=== PATIENT | female | born 1975 | race Caucasian/White ===

== ENCOUNTER → 2020-04-23 10:58 | Outpatient (BNVA) | payer MEDICAID, SELFPAY | PROVIDERS: Family Provider Nurse Practitioner; PCP Nurse Practitioner; Visit Provider Internal Medicine | DX: Z79.899 Other long term (current) drug therapy (principal); Z11.1 Encounter for screening for respiratory tuberculosis; Z11.59 Encounter for screening for other viral diseases | CPT/HCPCS: 36415; 80053; 85025; 85651; 86140; 86480; 86704; 86803; 87340 ==

== ENCOUNTER → 2020-04-26 15:45 | Outpatient (BNVA) | payer MEDICAID, SELFPAY | PROVIDERS: Family Provider Nurse Practitioner; PCP Nurse Practitioner; Visit Provider Obstetrics & Gynecology | DX: N87.1 Moderate cervical dysplasia (principal) | CPT/HCPCS: 88175 ==

== ENCOUNTER → 2020-05-14 09:51 | Outpatient (BNVA) | payer SELFPAY | PROVIDERS: Family Provider Nurse Practitioner; PCP Nurse Practitioner; Visit Provider Internal Medicine | DX: L40.50 Arthropathic psoriasis, unspecified (principal); L40.9 Psoriasis, unspecified; Z79.899 Other long term (current) drug therapy; F17.210 Nicotine dependence, cigarettes, uncomplicated | CPT/HCPCS: 99213 ==

== ENCOUNTER → 2020-07-18 13:17 | Outpatient (BNVA) | payer SELFPAY | PROVIDERS: Family Provider Nurse Practitioner; PCP Internal Medicine; Visit Provider Internal Medicine | DX: L40.50 Arthropathic psoriasis, unspecified (principal); Z79.899 Other long term (current) drug therapy; F17.210 Nicotine dependence, cigarettes, uncomplicated | CPT/HCPCS: 99213 ==

== ENCOUNTER 2020-07-22 16:03 | Emergency (ER) | payer SELFPAY ==
[2020-07-22] VITALS (7 sets, daily range): BP systolic 106–153; BP diastolic 63–80; PULSE 85–144; RESP 15–20; TEMP 36.9; O2SAT 96–100; BMI 34.7
--- NOTE | 2020-07-22 16:25 | XRR_ITS ---
PROCEDURE INFORMATION: Exam: XR Chest Exam date and time: 07/22/2020 4:28 PM Age: 45 years old Clinical indication: Shortness of breath; Additional info: SOB TECHNIQUE: Imaging protocol: XR of the chest Views: 1 view. COMPARISON: No relevant prior studies available. FINDINGS: Lungs: Visualized portions of the lungs are clear. Pleural spaces: Unremarkable. No pleural effusion. No pneumothorax. Heart/Mediastinum: Heart is within normal limits of size. Bones/joints: There is scoliosis of the lower thoracic spine concave to the left with approximately 44 degrees of curvature is measured from T5 through T12. XR/XR chest 1V portable [id number] IMPRESSION: 1. Scoliosis. 2. No acute infiltrates.
--- NOTE | 2020-07-22 16:25 | ECG_ITS ---
[facility] Test Date: 2020-07-22 Pat Name: Celia Mcnamara Department: Room: Gender: Female Strategic Communications Specialist: : 1975 Requested By: Panfilo Hernandez Order Number: [id number] Reading MD: SCOT COSTA Measurements Intervals Una Rate: 137 P: 70 CA: 127 QRS: 75 QRSD: 82 T: 50 QT: 294 QTc: 444 Interpretive Statements SINUS TACHYCARDIA ABNORMAL RHYTHM ECG No previous ECG available for comparison Electronically Signed On 07-22-2020 17:41:00 TICKET CHOPPER ASSEMBLER by SCOT COSTA [id number]
--- NOTE | 2020-07-22 17:19 | USR_ITS ---
PROCEDURE INFORMATION: Exam: US Duplex Left Upper Extremity Veins, Limited Exam date and time: 07/22/2020 5:24 PM Age: 45 years old Clinical indication: Pain; Swelling (edema) of limb; Upper extremity, left; Arm, upper; Additional info: R/O upper ext dvt TECHNIQUE: Imaging protocol: Real-time Duplex ultrasound of the Left Upper Extremity with 2-D burris scale, color Doppler flow and spectral waveform analysis with image documentation. Limited exam focused on the left upper extremity veins. COMPARISON: No relevant prior studies available. FINDINGS: Left deep veins: Unremarkable. Axillary and brachial veins are patent throughout without thrombus. Normal Doppler waveforms. Normal compressibility and/or augmentation response. Visualized internal jugular and subclavian veins are patent. Left superficial veins: Unremarkable. Visualized cephalic and basilic veins are patent without thrombus. Soft tissues: Unremarkable. US/[place] [id number] IMPRESSION: No evidence of deep vein thrombosis.
[2020-07-22 17:28] LABS: Basophils # 0.1 10^3/uL (0.0-0.1); Basophils % 0.7 %; Eosinophils # 0.5 10^3/uL (0.0-0.8); Eosinophils % 3.8 %; Hematocrit 40.9 % (37.0-47.0); Hemoglobin 12.8 g/dL (11.5-15.3); Lymphocytes # 5.9 10^3/uL (0.8-4.8); Lymphocytes % 43.4 %; Mean Corpuscular HGB Conc 31.3 g/dL (30.0-36.0); Mean Corpuscular Hemoglobin 27.7 pg (28.0-34.0); Mean Corpuscular Volume 88.5 fL (81-99); Mean Platelet Volume 9.6 fL (7.4-10.4); Monocytes # 0.6 10^3/uL (0.2-0.9); Monocytes % 4.4 %; Neutrophils # 6.41 10^3/uL (1.8-7.7); Neutrophils % 47.4 %; Nucleated Red Blood Cells % 0 %; Platelet Count 326 10^3/cmm (130-400); Red Blood Count 4.62 10^6/uL (4.1-5.3); Red Cell Distribution Width 15.5 % (12.1-15.1); White Blood Count 13.5 10^3/uL (4.0-10.0)
[2020-07-22] MEDS: LORazepam 2 mg/mL INJ 1 mL 1 MG IVP (17:28)
[2020-07-22] MEDS: sodium chloride 0.9% 1,000 ML 999 ML IV (17:28)
[2020-07-22 17:40] LABS: D Dimer 0.29 ug/mIFEU (0-0.59)
[2020-07-22 18:01] LABS: Alanine Aminotransferase 14 U/L (0-33); Albumin Level 4.4 g/dL (3.5-5.2); Alkaline Phosphatase 112 IU/L (35-105); Anion Gap 13.9 (5-19); Aspartate Amino Transferase 14 U/L (0-32); Blood Urea Nitrogen 8 mg/dL (6-20); Calcium 9.2 mg/dL (8.5-10.5); Carbon Dioxide 26 mmol/L (22-29); Chloride 103 mmol/L (98-107); Glomerular Filtration Rate 90.5 mL/min (90-130); Glucose 94 mg/dL (65-115); Osmolality Calculated 286 mOsm/kg (285-295); Potassium 3.9 mmol/L (3.5-5.1); Sodium 139 mmol/L (136-145); Total Bilirubin 0.2 mg/dL (0.15-1.2); Total Protein 7.4 g/dL (6.6-8.7)
[2020-07-22 18:02] LABS: Troponin(5th) Baseline 6 ng/L (0-10)
--- NOTE | 2020-07-22 19:09 | W.ED.CHESTPA ---
HPI - Chest Pain General: Chief Complaint: Chest Pain Stated Complaint: LEFT ARM PAIN, chest pressure Time Seen by Provider: 07/22/20 16:36 History of Present Illness: HPI narrative: The patient is a 45-year-old female with past medical history anxiety who comes to the ER complaining of tachycardia, palpitations, and left proximal arm pain. She says she has a lump in her proximal arm that is tender and she does not know what it was. Also she says her baseline heart rate is around 100 because of her anxiety however today it has been in the 130s and 140s. Her heart rate was sinus tachycardia 144 on arrival. She was given 1 mg Ativan IV and calm down with her heart rate in the low 80s. Denies previous cardiac disease. She also has fibromyalgia and psoriatic arthritis. Timing of current episode: episodic Prior episodes: Yes Onset: during rest Quality: tightness Relieving factors: nothing Associated symptoms: Reports palpitations; Deny abdominal pain or dyspnea Review of Systems General: Reports: 10 or more systems reviewed and unremarkable except in HPI and below Const: Denies: fatigue Eyes: Denies: change in vision, blurry vision or eye redness ENMT: Denies: throat pain, swelling of lips/tongue, ear or mastoid pain or nasal congestion Card: Reports: palpitations; Denies: chest pain, irregular heart rhythm, edema, dyspnea on exertion or orthopnea Resp: Denies: dyspnea, productive cough or non-productive cough GI: Denies: abdominal pain, diarrhea or GI cramping : Denies: flank pain, difficulty voiding, urinary frequency or urinary urgency Musc: Denies: neck pain, back pain, extremity pain, joint pain, joint redness, limited range of motion or muscle weakness Skin/Breast: Denies: rash, pruritus, erythema, skin pain or skin tenderness Neuro: Denies: headache(s), numbness in extremities, weakness in extremities, sensory changes, difficulty walking, dizziness, confusion or Slurred speech present Psych: Denies: anxiety or depression Endo: Denies: polyuria All/Imm: Denies: urticaria, throat swelling or tongue swelling PFSH ED PFSH: Medical History Anxiety Cervical intraepithelial neoplasia II Fibromyalgia Psoriasis Psoriatic arthritis Scoliosis of thoracic spine Surgical History S/P cholecystectomy (~2000) Laparoscopic converted to open. Performed at [facility] in [place], [place]. S/P conization of cervix (11/30/18) Cold knife conization. Performed by Dr. Solorzano at [facility] in [place], [place]. Final path: AYSE 2. ECC negative. Family History Mother Diabetes Hypertension Heart disease Family history of thyroid problem Social History Smoking and tobacco status: current every day smoker cigarettes Packs smoked per day: 1 [ Other cigarette details: Started age 18 ] Alcohol intake: never Physical Exam Const: COMMON NORMALS: no acute distress, average body habitus, patient oriented x3, no limitations, healthy appearing, alert and well nourished GENERAL APPEARANCE: cooperative, comfortable, well kempt and well developed ORIENTATION/CONSCIOUSNESS: Yes awake, Yes oriented to person, Yes oriented to place and Yes oriented to time HENMT: COMMON NORMALS: normocephalic, external ears normal and Normal external nose present HEAD & SCALP: normal to inspection and normocephalic NOSE: Normal external nose present EXTERNAL EAR: Yes external ears normal MOUTH: Normal oral and palatal mucosa present THROAT: posterior oropharynx normal Eye: COMMON NORMALS: Equal, round and reactive pupils present and EOMs intact bilaterally GENERAL EYE: appearance normal, both eyes and all related structures PUPIL: Yes Equal, round and reactive pupils present Neck/C-Spine: COMMON NORMALS: full ROM, no lymphadenopathy, no meningeal signs and no JVD GENERAL: Yes normal visual inspection Lymph: LYMPHATIC: no lymphadenopathy noted Chest: COMMONS NORMALS: normal inspection of the chest and normal palpation of entire chest wall Resp: COMMON NORMALS: normal respiratory effort, No retractions, No use of accessory muscles, clear to auscultation bilaterally and percussion normal EFFORT & INSPECTION: Yes able to speak in complete sentences AUSCULTATION: clear to auscultation bilaterally PERCUSSION: percussion normal Cardio: COMMON NORMALS: no JVD, regular rhythm, S1 normal heart sound present, S2 normal heart sound present and Peripheral pulses 2+ throughout RATE: tachycardic RHYTHM: regular rhythm HEART SOUNDS: S1 normal heart sound present and S2 normal heart sound present PERIPHERAL PULSES: Peripheral pulses 2+ throughout GI: COMMON NORMALS: Normal to inspection, nondistended, normoactive bowel sounds present, Soft to palpation, non-tender and no masses INSPECTION: Yes normal to inspection PALPATION: Yes Soft to palpation : COMMON NORMALS: Yes no CVA tenderness BLADDER/KIDNEY EXAM: Yes no CVA tenderness Back/Pelvis: COMMON NORMALS: no CVA tenderness, thoracic and lumbar spine normal to inspection, no thoracic nor lumbar tenderness and thoraco-lumbar ROM normal Extremity: COMMON NORMALS: normal to inspection, full ROM, capillary refill normal, no joint enlargement and no pedal edema GENERAL: Yes normal exam except as noted Neuro: COMMON NORMALS: patient oriented x3, CN's II-XII intact bilaterally, moves all extremities, no focal motor deficits, no sensory deficits noted and gait normal SENSORIUM/ORIENTATION: Yes alert, Yes oriented to person, Yes oriented to place and Yes oriented to time MENINGEAL SIGNS: Yes no meningeal signs Psych: COMMON NORMALS: mental status grossly normal, Normal thought process present, cooperative, normal affect and speech normal APPEARANCE: Yes well kempt ATTITUDE: Yes calm SPEECH: Yes normal speech THOUGHT PROCESS: Normal thought process present Skin: COMMON NORMALS: no rashes or lesions noted GENERAL SKIN EXAM: no rashes or lesions noted Course Vital Signs: Vital signs: Vital Signs Temperature 98.5 F 07/22/20 16:06 Pulse Rate 85 07/22/20 18:46 Respiratory Rate 15 07/22/20 18:46 Blood Pressure 122/63 07/22/20 18:46 Pulse Oximetry 99 07/22/20 18:46 MDM - Chest Pain MDM Narrative: Medical decision making narrative: The patient came in tachycardic likely from anxiety. D-dimer negative. Troponin normal. She was sinus tachycardia and given 1 mg of Ativan IV and her resting heart rate became the low to mid 80s. Stable for discharge. Ultrasound was negative for deep vein thrombosis. Lab Data: Labs: Lab Results 07/22/20 07/22/20 07/22/20 Range/Units 17:20 17:20 17:20 WBC 13.5 H (4.0-10.0) 10^3/ uL RBC 4.62 (4.1-5.3) 10^6/u L Hgb 12.8 (11.5-15.3) g/dL Hct 40.9 (37.0-47.0) % MCV 88.5 (81-99) fL MCH 27.7 L (28.0-34.0) pg MCHC 31.3 (30.0-36.0) g/dL RDW 15.5 H (12.1-15.1) % Plt Count 326 (130-400) 10^3/c mm MPV 9.6 (7.4-10.4) fL Neut % (Auto) 47.4 % Lymph % (Auto) 43.4 % Morrison % (Auto) 4.4 % Eos % (Auto) 3.8 % Baso % (Auto) 0.7 % Neut # (Auto) 6.41 (1.8-7.7) 10^3/u L Lymph # (Auto) 5.9 H (0.8-4.8) 10^3/u L Morrison # (Auto) 0.6 (0.2-0.9) 10^3/u L Eos # (Auto) 0.5 (0.0-0.8) 10^3/u L Baso # (Auto) 0.1 (0.0-0.1) 10^3/u L Nucleated RBC % (a uto) 0 % Nucleated RBCs # 0.0 /100WBC D-Dimer 0.29 (0-0.59) ug/mIFE U Sodium 139 (136-145) mmol/L Potassium 3.9 (3.5-5.1) mmol/L Chloride 103 (98-107) mmol/L Carbon Dioxide 26 (22-29) mmol/L Anion Gap 13.9 (5-19) BUN 8 (6-20) mg/dL Creatinine 0.7 (0.5-0.9) mg/dL GFR Calculation 90.5 (90-130) mL/min Glucose 94 (65-115) mg/dL Calculated Osmolal ity 286 (285-295) mOsm/k g Calcium 9.2 (8.5-10.5) mg/dL Total Bilirubin 0.2 (0.15-1.2) mg/dL AST 14 (0-32) U/L ALT 14 (0-33) U/L Alkaline Phosphata se 112 H (35-105) IU/L Troponin T Baselin e (0-10) ng/L Total Protein 7.4 (6.6-8.7) g/dL Albumin 4.4 (3.5-5.2) g/dL Globulin 3.0 (1.3-4.6) g/dL 07/22/20 Range/Units 17:20 WBC (4.0-10.0) 10^3/ uL RBC (4.1-5.3) 10^6/u L Hgb (11.5-15.3) g/dL Hct (37.0-47.0) % MCV (81-99) fL MCH (28.0-34.0) pg MCHC (30.0-36.0) g/dL RDW (12.1-15.1) % Plt Count (130-400) 10^3/c mm MPV (7.4-10.4) fL Neut % (Auto) % Lymph % (Auto) % Morrison % (Auto) % Eos % (Auto) % Baso % (Auto) % Neut # (Auto) (1.8-7.7) 10^3/u L Lymph # (Auto) (0.8-4.8) 10^3/u L Morrison # (Auto) (0.2-0.9) 10^3/u L Eos # (Auto) (0.0-0.8) 10^3/u L Baso # (Auto) (0.0-0.1) 10^3/u L Nucleated RBC % (a uto) % Nucleated RBCs # /100WBC D-Dimer (0-0.59) ug/mIFE U Sodium (136-145) mmol/L Potassium (3.5-5.1) mmol/L Chloride (98-107) mmol/L Carbon Dioxide (22-29) mmol/L Anion Gap (5-19) BUN (6-20) mg/dL Creatinine (0.5-0.9) mg/dL GFR Calculation (90-130) mL/min Glucose (65-115) mg/dL Calculated Osmolal ity (285-295) mOsm/k g Calcium (8.5-10.5) mg/dL Total Bilirubin (0.15-1.2) mg/dL AST (0-32) U/L ALT (0-33) U/L Alkaline Phosphata se (35-105) IU/L Troponin T Baselin e 6 (0-10) ng/L Total Protein (6.6-8.7) g/dL Albumin (3.5-5.2) g/dL Globulin (1.3-4.6) g/dL Discharge Plan Discharge Patient Disposition: Home Clinical Impression: Anxiety Condition: Stable Prescriptions: No Action diphenhydramine HCl [Benadryl] 25 mg capsule 25 mg PO PRN RF: 0 ciclopirox 8 % solution 1 applic topical DAILY Qty: 6.6 RF: 3 Tylenol Extra Strength 500 mg Tablet 500 mg PO PRN RF: 0 diclofenac sodium 75 mg tablet,delayed release (DR/EC) 75 mg PO BID@08,20 RF: 0 Otezla 30 mg tablet 30 mg PO BID@08,20 RF: 0 Discharge Orders: Discharge ED (Routine); Ordered 07/22/20 Ordered By: Alex Gibbs Referrals: Jackie Shore DO [Primary Care Provider] - Discharge Diet: Advance as tolerated Discharge Activity: Resume usual activity Patient Instructions: Anxiety (ED), Opioid Safety Activity Restrictions/Additional Instructions: You have an elevated heart rate likely related to your anxiety. When you are given anxiety medicine your heart rate came down to the 80s. Please follow-up with your primary care physician to discuss this further in a couple days. Return to the ER with worsening symptoms Coding Level of Care Code ED Fagoting Machine Operator for Jasmina Murillo Exam Comprehensive
== END 2020-07-22 19:44 | disposition home or self-care (01) ==
PROVIDERS: Emergency Medicine; Emergency Provider Family Medicine; PCP Family Medicine
DX: F41.9 Anxiety disorder, unspecified (principal); F17.210 Nicotine dependence, cigarettes, uncomplicated
CPT/HCPCS: 71045; 80053; 84484; 85025; 85378; 93005; 93971; 96361; 96374; 99284; J2060; J7030

== ENCOUNTER → 2020-07-23 10:14 | Outpatient (BNVA) | payer SELFPAY | PROVIDERS: PCP Family Medicine; Referring Provider Dermatology; Visit Provider Podiatrist Foot & Ankle Surgery | DX: M19.071 Primary osteoarthritis, right ankle and foot (principal); M79.671 Pain in right foot; M79.672 Pain in left foot; L40.50 Arthropathic psoriasis, unspecified; L60.3 Nail dystrophy; Q82.8 Other specified congenital malformations of skin | CPT/HCPCS: 73630; 87210 ==

== ENCOUNTER 2020-08-24 13:18 | Outpatient (CLI) | payer SELFPAY ==
--- NOTE | 2020-08-24 13:30 | XR_ITS ---
WS: [id number] Thoracic spine, 3 views, 08/24/2020 Clinical Data: chronic back pain Comparison: Thoracic spine, 01/12/2020. Findings: No compression fractures are seen. The disc heights are normal. There is a dextroscoliosis of the lower thoracic spine unchanged. The paravertebral regions are unrem arkable. There are clips in the right upper quadrant from a cholecystectomy. XR/XR thoracic spine 2V [id number] Impression: Negative for acute change of the thoracic spine.
--- NOTE | 2020-08-24 14:00 | XR_ITS ---
WS: [id number] Lumbar spine, 3 views, 08/24/2020 Clinical Data: chronic back pain Comparison: None. Findings: No compression fractures or subluxation is seen. No disc space narrowing is seen. The transverse proc esses and SI joints are normal. There is a levoscoliosis of the lumbar spine. There are clips in the right upper quadrant from a chol ecystectomy. XR/XR lumbar spine 2-3V* [id number] Impression: Negative for acute change of lumbar spine.
--- NOTE | 2020-08-24 14:30 | XR_ITS ---
WS: [id number] Cervical spine, 3 views, 08/24/2020 Clinical Data: chronic back pain Comparison: None. Findings: No compression fractures are seen. The disc heights are normal. There is no prevertebral so ft tissue swelling. The odontoid is unremarkable. The soft tissues of the neck and the lung apices ar e normal. XR/XR cervical spine 3V* [id number] Impression: Negative cervical spine.
== END 2020-08-24 13:19 | disposition home or self-care (01) ==
LOC: RADWPI 13:21
PROVIDERS: PCP Family Medicine; Visit Provider Family Medicine
DX: M54.2 Cervicalgia (principal); M54.6 Pain in thoracic spine; M54.5 Low back pain
CPT/HCPCS: 72040; 72070; 72100

== ENCOUNTER 2020-09-13 13:49 | Outpatient (RCR) | payer SELFPAY | END 2020-09-14 23:59 | disposition home or self-care (01) | LOC: SPT 13:49 | PROVIDERS: PCP Family Medicine; Referring Provider Family Medicine; Visit Provider Family Medicine | DX: M54.9 Dorsalgia, unspecified (principal); G89.29 Other chronic pain | CPT/HCPCS: 97161 ==

== ENCOUNTER 2020-09-15 06:00 | Outpatient (RCR) | payer SELFPAY | END 2020-10-15 23:59 | disposition home or self-care (01) | LOC: SPT 06:00 | PROVIDERS: PCP Family Medicine; Referring Provider Family Medicine; Visit Provider Family Medicine | DX: M54.9 Dorsalgia, unspecified (principal); G89.29 Other chronic pain | CPT/HCPCS: 97110 ==

== ENCOUNTER 2020-11-02 11:14 | Outpatient (CLI) | payer SELFPAY ==
[2020-11-02 11:45] LABS: Basophils # 0.1 10^3/uL (0.0-0.1); Basophils % 0.7 %; Eosinophils # 0.7 10^3/uL (0.0-0.8); Eosinophils % 5.4 %; Hematocrit 41.3 % (37.0-47.0); Hemoglobin 12.9 g/dL (11.5-15.3); Lymphocytes # 6.4 10^3/uL (0.8-4.8); Lymphocytes % 47.3 %; Mean Corpuscular HGB Conc 31.2 g/dL (30.0-36.0); Mean Corpuscular Hemoglobin 27.7 pg (28.0-34.0); Mean Corpuscular Volume 88.8 fL (81-99); Mean Platelet Volume 9.8 fL (7.4-10.4); Monocytes # 0.7 10^3/uL (0.2-0.9); Monocytes % 5.4 %; Neutrophils # 5.58 10^3/uL (1.8-7.7); Nucleated Red Blood Cells % 0 %; Platelet Count 310 10^3/cmm (130-400); Positive M 1; Red Blood Count 4.65 10^6/uL (4.1-5.3); Red Cell Distribution Width 16.3 % (12.1-15.1); White Blood Count 13.6 10^3/uL (4.0-10.0)
[2020-11-02 12:16] LABS: Alanine Aminotransferase 10 U/L (0-33); Alkaline Phosphatase 127 IU/L (35-105); Anion Gap 15.3 (5-19); Aspartate Amino Transferase 12 U/L (0-32); Blood Urea Nitrogen 7 mg/dL (6-20); C Reactive Protein 2.3 mg/L (0.0-4.9); Calcium 8.6 mg/dL (8.5-10.5); Carbon Dioxide 25 mmol/L (22-29); Chloride 103 mmol/L (98-107); Globulin 2.7 g/dL (1.3-4.6); Glomerular Filtration Rate 90.5 mL/min (90-130); Glucose 89 mg/dL (65-115); Osmolality Calculated 285 mOsm/kg (285-295); Potassium 4.3 mmol/L (3.5-5.1); Sodium 139 mmol/L (136-145); Total Bilirubin 0.2 mg/dL (0.15-1.2); Total Protein 6.7 g/dL (6.6-8.7)
[2020-11-02 12:34] LABS: Erythrocyte Sedimentation Rate 34 mm/hr (0-15)
[2020-11-02 12:58] LABS: Slide Review Slide Review Perform
== END 2020-11-02 11:15 | disposition home or self-care (01) ==
LOC: LAB 11:20
PROVIDERS: PCP Family Medicine; Visit Provider Internal Medicine
DX: L40.50 Arthropathic psoriasis, unspecified (principal); M79.7 Fibromyalgia; Z79.899 Other long term (current) drug therapy
CPT/HCPCS: 36415; 80053; 85025; 85651; 86140

== ENCOUNTER → 2020-11-07 13:36 | Outpatient (BNVA) | payer SELFPAY | PROVIDERS: PCP Family Medicine; Visit Provider Internal Medicine | DX: L40.50 Arthropathic psoriasis, unspecified (principal); Z79.899 Other long term (current) drug therapy; M79.7 Fibromyalgia; M54.9 Dorsalgia, unspecified; G89.29 Other chronic pain; F17.210 Nicotine dependence, cigarettes, uncomplicated | CPT/HCPCS: 99213; 99214 ==

== ENCOUNTER → 2021-02-14 10:22 | Outpatient (BNVA) | payer MEDICAID, SELFPAY | PROVIDERS: PCP Family Medicine; Visit Provider Internal Medicine | DX: L40.50 Arthropathic psoriasis, unspecified (principal); L40.9 Psoriasis, unspecified; M79.7 Fibromyalgia; Z79.899 Other long term (current) drug therapy | CPT/HCPCS: 36415; 80053; 85025; 85651; 86140 ==

== ENCOUNTER → 2021-02-19 10:45 | Outpatient (BNVA) | payer MEDICAID, SELFPAY | PROVIDERS: PCP Family Medicine; Visit Provider Internal Medicine | DX: L40.50 Arthropathic psoriasis, unspecified (principal); L40.9 Psoriasis, unspecified; Z79.899 Other long term (current) drug therapy; M79.7 Fibromyalgia; M54.9 Dorsalgia, unspecified; G89.29 Other chronic pain; F17.210 Nicotine dependence, cigarettes, uncomplicated | CPT/HCPCS: 99213; 99214 ==

== ENCOUNTER 2021-06-05 08:22 | Outpatient (CLI) | payer MEDICAID, SELFPAY ==
[2021-06-05 09:09] LABS: Alanine Aminotransferase 14 U/L (0-33); Albumin Level 4.2 g/dL (3.5-5.2); Alkaline Phosphatase 115 IU/L (35-105); Anion Gap 15.1 (5-19); Aspartate Amino Transferase 13 U/L (0-32); Blood Urea Nitrogen 6 mg/dL (6-20); C Reactive Protein 2.7 mg/L (0.0-4.9); Calcium 8.2 mg/dL (8.5-10.5); Carbon Dioxide 25 mmol/L (22-29); Chloride 104 mmol/L (98-107); Globulin 2.1 g/dL (1.3-4.6); Glomerular Filtration Rate 107.6 mL/min (90-130); Glucose 98 mg/dL (65-115); Osmolality Calculated 288 mOsm/kg (285-295); Potassium 4.1 mmol/L (3.5-5.1); Sodium 140 mmol/L (136-145); Total Bilirubin 0.2 mg/dL (0.15-1.2); Total Protein 6.3 g/dL (6.6-8.7)
[2021-06-05 09:26] LABS: Erythrocyte Sedimentation Rate 28 mm/hr (0-15)
[2021-06-05 09:30] LABS: Basophils # 0.1 10^3/uL (0.0-0.1); Basophils % 0.7 %; Eosinophils # 0.4 10^3/uL (0.0-0.8); Eosinophils % 3.4 %; Hematocrit 42.9 % (37.0-47.0); Lymphocytes # 4.5 10^3/uL (0.8-4.8); Lymphocytes % 40.1 %; Mean Corpuscular HGB Conc 32.6 g/dL (30.0-36.0); Mean Corpuscular Volume 94.9 fl (81-99); Mean Platelet Volume 10.3 fL (7.4-10.4); Monocytes # 0.6 10^3/uL (0.2-0.9); Monocytes % 5.3 %; Neutrophils # 5.57 10^3/uL (1.8-7.7); Nucleated Red Blood Cells % 0 %; Platelet Count 263 10^3/cmm (130-400); Red Blood Count 4.52 10^6/uL (4.1-5.3); Red Cell Distribution Width 15.6 % (12.1-15.1); White Blood Count 11.2 10^3/uL (4.0-10.0)
[2021-06-05 09:55] LABS: Slide Review Slide Review Perform
== END 2021-06-05 08:23 | disposition home or self-care (01) ==
LOC: LAB 08:25
PROVIDERS: PCP Family Medicine; Visit Provider Internal Medicine
DX: M19.90 Unspecified osteoarthritis, unspecified site (principal); L40.50 Arthropathic psoriasis, unspecified; Z79.899 Other long term (current) drug therapy; L40.9 Psoriasis, unspecified
CPT/HCPCS: 36415; 80053; 85025; 85651; 86140

== ENCOUNTER → 2021-06-10 13:52 | Outpatient (BNVA) | payer MEDICAID, SELFPAY | PROVIDERS: PCP Family Medicine; Visit Provider Internal Medicine | DX: L40.50 Arthropathic psoriasis, unspecified (principal); Z79.899 Other long term (current) drug therapy; Z87.891 Personal history of nicotine dependence | CPT/HCPCS: 99214 ==

== ENCOUNTER → 2021-06-28 15:41 | Outpatient (BNVA) | payer MEDICAID, SELFPAY | PROVIDERS: PCP Family Medicine; Visit Provider Nurse Practitioner Women's Health | DX: N87.1 Moderate cervical dysplasia (principal) | CPT/HCPCS: 87624 ==

== ENCOUNTER → 2021-09-02 14:43 | Outpatient (BNVA) | payer MEDICAID, SELFPAY | PROVIDERS: PCP Family Medicine; Visit Provider Podiatrist Foot & Ankle Surgery | DX: L85.1 Acquired keratosis [keratoderma] palmaris et plantaris (principal); F17.210 Nicotine dependence, cigarettes, uncomplicated | CPT/HCPCS: 17110 ==

== ENCOUNTER 2021-09-04 09:43 | Outpatient (CLI) | payer MEDICAID, SELFPAY ==
[2021-09-04 11:21] LABS: Hematocrit 44.8 % (37.0-47.0); Hemoglobin 14.6 g/dL (11.5-15.3); Mean Corpuscular HGB Conc 32.6 g/dL (30.0-36.0); Mean Corpuscular Volume 95.1 fl (81-99); Mean Platelet Volume 10.3 fL (7.4-10.4); Platelet Count 271 10^3/cmm (130-400); Red Blood Count 4.71 10^6/uL (4.1-5.3); Red Cell Distribution Width 14.4 % (12.1-15.1); White Blood Count 11.5 10^3/uL (4.0-10.0)
[2021-09-04 11:28] LABS: Erythrocyte Sedimentation Rate 32 mm/hr (0-15)
[2021-09-04 12:11] LABS: Slide Review Slide Review Perform
[2021-09-04 12:12] LABS: Absolute Eosinophils 0.6 10^3/cmm (0.0-0.7); Absolute Segmented Neutrophil 4.3 10/cmm (1.6-7.1); Eosinophils 6 %; Lymphocytes 43 %; Monocytes Absolute 0.6 10^3/cmm (0.1-0.6); Segmented Neutrophils 37 %; Total Cells Counted 100 (0-100)
[2021-09-04 12:22] LABS: Absolute Neutrophil 4.3 10^3/cmm (1.4-6.5); Platelet Estimate Normal (Normal)
[2021-09-04 16:56] LABS: Alanine Aminotransferase 21 U/L (0-33); Albumin Level 4.2 g/dL (3.5-5.2); Alkaline Phosphatase 111 IU/L (35-105); Aspartate Amino Transferase 27 U/L (0-32); Blood Urea Nitrogen 8 mg/dL (6-20); C Reactive Protein 5.7 mg/L (0.0-4.9); Calcium 8.6 mg/dL (8.5-10.5); Carbon Dioxide 23 mmol/L (22-29); Chloride 101 mmol/L (98-107); Globulin 3.4 g/dL (1.3-4.6); Glomerular Filtration Rate 107.6 mL/min (90-130); Glucose 81 mg/dL (65-115); Osmolality Calculated 285 mOsm/kg (285-295); Sodium 139 mmol/L (136-145); Total Bilirubin 0.2 mg/dL (0.15-1.2); Total Protein 7.6 g/dL (6.6-8.7)
[2021-09-04 16:57] LABS: Anion Gap 19.1 (5-19); Potassium 4.1 mmol/L (3.5-5.1)
== END 2021-09-04 09:44 | disposition home or self-care (01) ==
LOC: LAB 09:47
PROVIDERS: PCP Family Medicine; Visit Provider Internal Medicine
DX: L40.50 Arthropathic psoriasis, unspecified (principal); L40.9 Psoriasis, unspecified; Z79.899 Other long term (current) drug therapy
CPT/HCPCS: 80053; 85007; 85025; 85651; 86140

== ENCOUNTER 2021-09-08 12:31 | Emergency (ER) | payer MEDICAID, SELFPAY ==
[2021-09-08 12:44] VITALS: BP 128/83; PULSE 82; RESP 18; TEMP 37; O2SAT 97; BMI 36.6
--- NOTE | 2021-09-08 12:51 | ED_ITS ---
HPI - Back Pain/Injury General: Chief Complaint: Back Pain/Injury Stated Complaint: Lower back/leg pain Time Seen by Provider: 09/08/21 12:37 Source: patient Mode of arrival: ambulatory Limitations: no limitations History of Present Illness: Patient is a 46-year-old female presents to ED today with a complaint of lower back pain. Patient tells me she has chronic lower back pain with left-sided sciatica. She states a few days ago she fell directly onto her back/buttocks and has had worsening pain since. She states she recently saw her PCP following the fall who placed her on prednisone and tramadol. She is taking 50 mg tramadol twice daily and states the medication works approximately for an hour but then pain returns. She is scheduled to see pain management in October. Patient is not complaining of saddle anesthesia or bowel/bladder dysfunction. MD elicited complaint: back pain Pertinent past history: prior back pain Onset (ago): day(s) Timing: constant Severity: moderate Pain scale (0-10): 6 Similar Symptoms Previously: Yes Location: lumbar spine Radiation: buttocks and left leg below the knee Associated symptoms: Reports no associated symptoms; Deny abdominal pain, chills, dysuria, fatigue, fever(s) or hematuria Treatments prior to arrival: prescription analgesics Work related injury: No Review of Systems Const: Denies: fever(s), chills, body aches, fatigue or malaise Card: Denies: chest pain Resp: Denies: dyspnea GI: Denies: abdominal pain : Denies: flank pain, dysuria or hematuria Musc: Reports: back pain; Denies: neck pain, extremity pain, extremity swelling, joint pain, joint swelling or joint redness Neuro: Denies: headache(s), numbness in extremities or weakness in extremities [facility] ED PFSH: Medical History Cervical intraepithelial neoplasia II Fibromyalgia Murmur, heart asymptomatic-- dx at 28 y/o No pertinent past medical history neghx: htn,dm,thyroid,dvt/pe PCP: Dr. Shore Psoriasis Psoriatic arthritis Dr. Vickey Blood of thoracic spine Surgical History S/P cholecystectomy (~2000) Laparoscopic converted to open. Performed at [facility] in [place], [place]. S/P conization of cervix (11/30/18) Cold knife conization. Performed by Dr. Solorzano at [facility] in [place], [place]. Final path: AYSE 2. ECC negative. Family History Mother Diabetes Hypertension Heart disease Thyroid disease Denies family history of Colon cancer Ovarian cancer Hypercholesteremia Breast cancer Uterine cancer Stroke Social History Smoking and tobacco status: current every day smoker Physical Exam Const: COMMON NORMALS: no acute distress, patient oriented x3, no limitations and alert GENERAL APPEARANCE: cooperative NUTRITIONAL APPEARANCE: overweight ORIENTATION/CONSCIOUSNESS: Yes awake, Yes oriented to person, Yes oriented to place and Yes oriented to time HENMT: COMMON NORMALS: normocephalic and atraumatic HEAD & SCALP: normocephalic and atraumatic : COMMON NORMALS: Yes no CVA tenderness BLADDER/KIDNEY EXAM: Yes no CVA tenderness Back/Pelvis: COMMON NORMALS: no CVA tenderness THORACIC SPINE/UPPER BACK: Yes normal to inspection, Yes thoracic ROM normal, No thoracic spinal tenderness, No paraspinal muscle tenderness and No paraspinal muscle spasm LUMBAR SPINE/LOWER BACK: Yes normal to inspection, Yes lumbar spinal tenderness, No paraspinal muscle tenderness, No paraspinal muscle spasm and Yes straight leg raise negative bilaterally PELVIS: Yes buttocks normal SACROILIAC JOINTS: Yes SI joint(s) abnormal SI joint details: tender to palpation (left) SACRUM: no tenderness COCCYX: no tenderness Extremity: COMMON NORMALS: normal to inspection GENERAL: Yes normal exam except as noted Neuro: COMMON NORMALS: patient oriented x3, moves all extremities, no focal motor deficits and no sensory deficits noted SENSORIUM/ORIENTATION: Yes alert, Yes oriented to person, Yes oriented to place and Yes oriented to time MOTOR EXAM: 5/5 motor strength present throughout Skin: COMMON NORMALS: no rashes or lesions noted GENERAL SKIN EXAM: no rashes or lesions noted Course Vital Signs: Vital signs: Vital Signs Temperature 98.6 F 09/08/21 12:44 Pulse Rate 82 09/08/21 12:44 Respiratory Rate 18 09/08/21 12:44 Blood Pressure 128/83 09/08/21 12:44 Pulse Oximetry 97 09/08/21 12:44 MDM - Back Pain/Injury Medical Decision Making XRs negative. No acute neurologic deficits here. Patient only taking 50mg Tramadol BID-told her this could be increased. She states Dr. Shore wrote her for 60 tabs but her insurance would only cover one week worth so she only got 14 tabs. Told her I would rewrite her a new RX for increased dosing but pharmacy/insurance may not fill-patient aware and will pay mckeon if necessary. She is already on steroids. Will add muscle relaxers. Can follow up with PCP between now and her pain management appointment in October. Return to ED precautions given. Labs Radiology Impressions Lumbar Spine X-Ray 09/08/21 13:00 IMPRESSION: No acute findings. Discharge Plan Discharge Patient Disposition: Home Clinical Impression: Acute exacerbation of chronic low back pain Condition: Stable Prescriptions: New tramadol 50 mg tablet 50 mg PO Q4H PRN (Reason: pain) Qty: 20 0RF cyclobenzaprine 10 mg tablet 10 mg PO TID Qty: 14 0RF No Action diphenhydramine HCl [Benadryl] 25 mg capsule 25 mg PO PRN 0RF ibuprofen 800 mg tablet 800 mg PO Q8H Qty: 90 2RF buspirone 10 mg tablet 10 mg PO BID PRN (Reason: anxiety) Qty: 60 5RF cetirizine [Zyrtec] 10 mg tablet 10 mg PO DAILY PRN0RF prednisone 10 mg tablet 30 mg PO DAILY Qty: 15 0RF tramadol 50 mg tablet 50 mg PO BID PRN (Reason: pain) Qty: 60 0RF duloxetine 60 mg capsule,delayed release(DR/EC) 60 mg PO DAILY Qty: 30 5RF Rx Instructions: 340 B duloxetine [Cymbalta] 30 mg capsule,delayed release(DR/EC) 30 mg PO DAILY Qty: 30 5RF Rx Instructions: Take with 60 mg pill 340 B Humira 40 mg/0.8 mL syringe kit 40 mg SUBCUT Q14D Qty: 2 4RF Tylenol Extra Strength 500 mg Tablet 500 mg PO PRN 0RF Discharge Orders: Discharge ED (Routine); Ordered 09/08/21 Ordered By: Kassie Barone Referrals: Jackie Shore DO [Primary Care Provider] - Coding Level of Care Code ED Coin Rolling Machine Operator for Chg Fwd Exam Detailed
--- NOTE | 2021-09-08 13:00 | XRR_ITS ---
PROCEDURE INFORMATION: Exam: XR Lumbosacral Spine Exam date and time: 09/08/2021 1:13 PM Age: 46 years old Clinical indication: Injury or trauma; Blunt trauma (contusions or hematomas); Patient HX: C/O worsening lbp after fall 5 days ago; Additional info: Fall/pain TECHNIQUE: Imaging protocol: XR of the lumbosacral spine. Views: 2 or 3 views. COMPARISON: CR XR lumbar spine 2-3V* [id number] 08/24/2020 1:28 PM FINDINGS: Bones/joints: Normal. No acute fracture. Normal alignment. Soft tissues: Unremarkable. XR/XR lumbar spine 2-3V* [id number] IMPRESSION: No acute findings.
[2021-09-08] MEDS: ketorolac 60 mg/2 mL INJ IM (13:26)
[2021-09-08] MEDS: orphenadrine 30 mg/mL Inj 2 mL 60 MG IM (13:26)
[2021-09-08] MEDS: HYDROcodone-acetaminophen 5-325 mg Tablet 1 TAB PO (13:26)
[2021-09-08 14:15] VITALS: BP 112/74; PULSE 71; RESP 18; O2SAT 93
== END 2021-09-08 14:17 | disposition home or self-care (01) ==
PROVIDERS: Emergency Provider Physician Assistant; PCP Family Medicine
DX: M54.42 Lumbago with sciatica, left side (principal); G89.29 Other chronic pain; W18.30XA Fall on same level, unspecified, initial encounter
CPT/HCPCS: 72100; 96372; 99283; J1885; J2360

== ENCOUNTER → 2021-09-10 08:33 | Outpatient (BNVA) | payer MEDICAID, SELFPAY | PROVIDERS: PCP Family Medicine; Visit Provider Internal Medicine | DX: L40.50 Arthropathic psoriasis, unspecified (principal); Z79.899 Other long term (current) drug therapy; F17.200 Nicotine dependence, unspecified, uncomplicated | CPT/HCPCS: 99214 ==

== ENCOUNTER 2021-10-23 16:02 | Outpatient (CLI) | payer MEDICAID, SELFPAY ==
--- NOTE | 2021-10-23 16:13 | MM_ITS ---
WS: [id number] BILATERAL 3D TOMOSYNTHESIS DIGITAL SCREENING MAMMOGRAPHY WITH CAD CLINICAL INFORMATION: SCREEN HISTORY: Screening mammogram. No current complaints. COMPARISON: None. TECHNIQUE: Bilateral CC and MLO views. FINDINGS: Scattered fibroglandular densities bilaterally. No suspicious focal mass, asymmetry, calcifications, or architectural distortion. No evidence of malignancy. MM/[place] [id number] IMPRESSION: BI-RADS: 1-Negative FOLLOW UP: 1 Year Follow-up Recommend return to annual screening mammography.
== END 2021-10-23 16:03 | disposition home or self-care (01) ==
PROVIDERS: PCP Family Medicine; Visit Provider Nurse Practitioner Women's Health
DX: Z12.39 Encounter for other screening for malignant neoplasm of breast (principal)
CPT/HCPCS: 77063; 77067

== ENCOUNTER → 2021-11-21 15:11 | Outpatient (BNVA) | payer MEDICAID, SELFPAY | PROVIDERS: PCP Family Medicine; Visit Provider Podiatrist Foot & Ankle Surgery | DX: L85.1 Acquired keratosis [keratoderma] palmaris et plantaris (principal); L84 Corns and callosities | CPT/HCPCS: 17110 ==

== ENCOUNTER 2021-11-28 12:55 | Outpatient (CLI) | payer MEDICAID, SELFPAY ==
[2021-11-28 13:23] LABS: Hemoglobin 14.7 g/dL (11.5-15.3); Mean Corpuscular HGB Conc 33.4 g/dL (30.0-36.0); Mean Corpuscular Hemoglobin 31.5 pg (28.0-34.0); Mean Corpuscular Volume 94.2 fl (81-99); Mean Platelet Volume 9.8 fL (7.4-10.4); Platelet Count 265 10^3/cmm (130-400); Red Blood Count 4.67 10^6/uL (4.1-5.3); Red Cell Distribution Width 15.3 % (12.1-15.1); White Blood Count 9.8 10^3/uL (4.0-10.0)
[2021-11-28 13:42] LABS: Alanine Aminotransferase 15 U/L (0-33); Albumin Level 3.8 g/dL (3.5-5.2); Alkaline Phosphatase 92 IU/L (35-105); Blood Urea Nitrogen 6 mg/dL (6-20); Calcium 8.6 mg/dL (8.5-10.5); Carbon Dioxide 25 mmol/L (22-29); Chloride 104 mmol/L (98-107); Globulin 2.6 g/dL (1.3-4.6); Glomerular Filtration Rate 132.8 mL/min (90-130); Glucose 116 mg/dL (65-115); Osmolality Calculated 285 mOsm/kg (285-295); Sodium 138 mmol/L (136-145); Total Bilirubin 0.2 mg/dL (0.15-1.2); Total Protein 6.4 g/dL (6.6-8.7)
[2021-11-28 13:44] LABS: Anion Gap 12.9 (5-19); Aspartate Amino Transferase 17 U/L (0-32); Potassium 3.9 mmol/L (3.5-5.1)
[2021-11-28 15:02] LABS: Slide Review Slide Review Perform
[2021-11-28 15:03] LABS: Absolute Eosinophils 0.7 10^3/cmm (0.0-0.7); Absolute Neutrophil 5.3 10^3/cmm (1.4-6.5); Absolute Segmented Neutrophil 5.3 10/cmm (1.6-7.1); Eosinophils 8 %; Erythrocyte Sedimentation Rate 22 mm/hr (0-15); Lymphocytes 22 %; Lymphocytes Absolute 3.4 10^3/cmm (1.2-3.4); Monocytes Absolute 0.3 10^3/cmm (0.1-0.6); Platelet Estimate Normal (Normal); Segmented Neutrophils 54 %; Total Cells Counted 100 (0-100)
== END 2021-11-28 12:56 | disposition home or self-care (01) ==
PROVIDERS: PCP Family Medicine; Visit Provider Internal Medicine
DX: L40.50 Arthropathic psoriasis, unspecified (principal); Z79.899 Other long term (current) drug therapy
CPT/HCPCS: 36415; 80053; 85007; 85025; 85651; 86140

== ENCOUNTER → 2021-12-04 14:41 | Outpatient (BNVA) | payer MEDICAID, SELFPAY | PROVIDERS: PCP Family Medicine; Visit Provider Internal Medicine | DX: L40.50 Arthropathic psoriasis, unspecified (principal); M79.7 Fibromyalgia | CPT/HCPCS: 99214 ==

== ENCOUNTER 2022-03-09 12:36 | Emergency (ER) | payer MEDICAID, SELFPAY ==
[2022-03-09 13:20] VITALS: BMI 36.6
[2022-03-09 13:24] VITALS: BP 110/73; PULSE 92; RESP 18; TEMP 36.6; O2SAT 96
--- NOTE | 2022-03-09 13:33 | ED_ITS ---
HPI - Back Pain/Injury General: Chief Complaint: Back Pain/Injury Stated Complaint: Left hip pain and rib pain Time Seen by Provider: 03/09/22 13:30 History of Present Illness: 46-year-old female comes in today for complaints of increased low back pain. Patient reports that her routine medications do not seem to be controlling her pain. Patient has psoriasis with psoriatic arthritis. Patient also has chronic pain syndrome. Patient appears nontoxic. Patient appears in moderate pain. Associated symptoms: Deny fecal incontinence or fever(s) Review of Systems Const: Denies: fever(s) Resp: Denies: dyspnea GI: Denies: fecal incontinence : Denies: difficulty voiding Musc: Reports: back pain PFSH ED PFSH: Medical History Cervical intraepithelial neoplasia II Fibromyalgia Murmur, heart asymptomatic-- dx at 28 y/o No pertinent past medical history neghx: htn,dm,thyroid,dvt/pe PCP: Dr. Shore Psoriasis Psoriatic arthritis Dr. Vickey Blood of thoracic spine Surgical History S/P cholecystectomy (~2000) Laparoscopic converted to open. Performed at [facility] in [place], [place]. S/P conization of cervix (11/30/18) Cold knife conization. Performed by Dr. Solorzano at [facility] in [place], [place]. Final path: AYSE 2. ECC negative. Family History Mother Diabetes Hypertension Heart disease Thyroid disease Denies family history of Colon cancer Ovarian cancer Hypercholesteremia Breast cancer Uterine cancer Stroke Social History Smoking and tobacco status: current every day smoker History of recent travel: No Physical Exam Const: COMMON NORMALS: alert HENMT: COMMON NORMALS: normocephalic HEAD & SCALP: normocephalic Neck/C-Spine: COMMON NORMALS: full ROM Resp: COMMON NORMALS: normal respiratory effort Cardio: COMMON NORMALS: regular rate RATE: regular rate Back/Pelvis: LUMBAR SPINE/LOWER BACK: Yes paraspinal muscle tenderness Extremity: COMMON NORMALS: normal to inspection Neuro: SENSORIUM/ORIENTATION: Yes alert Skin: COMMON NORMALS: turgor normal GENERAL SKIN EXAM: turgor normal Course Vital Signs: Vital signs: Vital Signs Temperature 97.9 F 03/09/22 13:24 Pulse Rate 92 03/09/22 13:24 Respiratory Rate 18 03/09/22 13:24 Blood Pressure 110/73 03/09/22 13:24 Pulse Oximetry 96 03/09/22 13:24 Oxygen Delivery Me thod 03/09/22 13:24 MDM - Back Pain/Injury Medical Decision Making 46-year-old female comes in today for complaints of low back pain uncontrolled by medications at home. On exam patient has muscle tenderness and low back area. Patient denies fever or loss of bowel or bladder control. Abdomen soft nontender. Skin is warm and dry. Patient appears nontoxic. Differential diagnosis includes but not limited to psoriatic arthritis, intervertebral disc disease, facet arthropathy. Patient denied any injury so no imaging was recommended. Patient was wanting steroids but review of the current guidelines for psoriasis it is not recommended for steroid usage. Patient was treated for her pain with 60 mg of ketorolac and 1 mg of Dilaudid. Patient was recommended to follow-up with matlab developer in the morning for recommendations of flare which probably will more likely need adjustment and routine medications or additional treatment options. Patient reported understanding and agreed to plan. Discharge Plan Discharge Patient Disposition: Home Clinical Impression: Psoriatic arthritis Condition: Stable Prescriptions: No Action diphenhydramine HCl [Benadryl] 25 mg capsule 25 mg PO PRN mometasone 0.1 % cream 1 applic topical DAILY PRN (Reason: skin irritation) Qty: 45 0RF cetirizine [Zyrtec] 10 mg tablet 10 mg PO DAILY PRN prednisone 10 mg tablet 30 mg PO DAILY Qty: 15 0RF tramadol 50 mg tablet 50 mg PO BID PRN (Reason: pain) Qty: 60 0RF Humira 40 mg/0.8 mL syringe kit 40 mg SUBCUT Q14D Qty: 2 4RF Humira 40 mg/0.8 mL syringe kit 40 mg SUBCUT Q14D Qty: 2 4RF ibuprofen 800 mg tablet 800 mg PO Q8H Qty: 30 0RF buspirone 15 mg tablet 15 mg PO BID 30 Days Qty: 60 2RF duloxetine 60 mg capsule,delayed release(DR/EC) See Rx Instructions .ROUTE .COMPLEX Qty: 180 0RF Dose Instruction: TAKE ONE CAPSULE BY MOUTH TWICE DAILY FOR CHRONIC PAIN Rx Instructions: TAKE ONE CAPSULE BY MOUTH TWICE DAILY FOR CHRONIC PAIN hydrocodone-acetaminophen 10-325 mg tablet 1 tab PO Q4H PRN (Reason: pain) 30 Days Qty: 120 0RF Rx Instructions: max of 4 tabs per day duloxetine 60 mg capsule,delayed release(DR/EC) See Rx Instructions .ROUTE .COMPLEX Qty: 180 1RF Dose Instruction: TAKE ONE CAPSULE BY MOUTH TWICE DAILY FOR CHRONIC PAIN Rx Instructions: TAKE ONE CAPSULE BY MOUTH TWICE DAILY FOR CHRONIC PAIN baclofen 10 mg tablet See Rx Instructions .ROUTE .COMPLEX Qty: 30 0RF Dose Instruction: TAKE 1 TABLET BY MOUTH THREE TIMES DAILY NEEDED FOR MUSCLE SPASMS or back pain Rx Instructions: TAKE 1 TABLET BY MOUTH THREE TIMES DAILY NEEDED FOR MUSCLE SPASMS or back pain ibuprofen 800 mg tablet 800 mg PO Q8H Qty: 90 2RF Tylenol Extra Strength 500 mg Tablet 500 mg PO PRN tramadol 50 mg tablet 50 mg PO Q4H PRN (Reason: pain) Qty: 20 0RF Discharge Orders: Discharge ED (Routine); Ordered 03/09/22 Ordered By: Bobby Nguyen Referrals: Juan Vidal DO [Primary Care Provider] - Discharge Diet: Usual diet Discharge Activity: Increase activity as tolerated Patient Instructions: Arthritis (ED) Activity Restrictions/Additional Instructions: Follow-up with matlab developer in the morning regarding your exacerbation of sym ptoms. They may want to adjust your medications or consider alternative therapies. Current recommendations are not to use steroids and psoriasis as it may cause rebound flares with worsening symptoms. Return to ER for signs of infection such as high fever, inability to hold fluids down, or new concerns. Coding Level of Care Code ED Animal Keeper for Jasmina Murillo
[2022-03-09 14:08] VITALS: RESP 19
[2022-03-09] MEDS: HYDROmorphone 1 mg/mL INJ 1 mL IM (14:08)
[2022-03-09] MEDS: ketorolac 60 mg/2 mL INJ IM (14:09)
[2022-03-09 14:12] VITALS: RESP 18; O2SAT 98
== END 2022-03-09 14:13 | disposition home or self-care (01) ==
PROVIDERS: Emergency Provider Nurse Practitioner Family; PCP Family Medicine
DX: L40.50 Arthropathic psoriasis, unspecified (principal)
CPT/HCPCS: 96372; 99284; J1170; J1885

== ENCOUNTER 2022-04-08 08:57 | Outpatient (CLI) | payer MEDICAID, SELFPAY ==
[2022-04-08 09:27] LABS: Basophils # 0.1 10^3/uL (0.0-0.1); Basophils % 0.5 %; Eosinophils # 0.4 10^3/uL (0.0-0.8); Eosinophils % 3.7 %; Hematocrit 48.3 % (37.0-47.0); Lymphocytes # 3.8 10^3/uL (0.8-4.8); Lymphocytes % 34.5 %; Mean Corpuscular HGB Conc 33.1 g/dL (30.0-36.0); Mean Corpuscular Hemoglobin 32.2 pg (28.0-34.0); Mean Corpuscular Volume 97.2 fl (81-99); Mean Platelet Volume 9.5 fL (7.4-10.4); Monocytes # 0.7 10^3/uL (0.2-0.9); Monocytes % 6.3 %; Neutrophils # 6.08 10^3/uL (1.8-7.7); Neutrophils % 54.6 %; Nucleated Red Blood Cells % 0 %; Platelet Count 294 10^3/cmm (130-400); Red Blood Count 4.97 10^6/uL (4.1-5.3); Red Cell Distribution Width 14.1 % (12.1-15.1); White Blood Count 11.1 10^3/uL (4.0-10.0)
[2022-04-08 09:36] LABS: Erythrocyte Sedimentation Rate 20 mm/hr (0-15)
[2022-04-08 09:50] LABS: Alanine Aminotransferase 30 U/L (0-33); Albumin Level 3.9 g/dL (3.5-5.2); Alkaline Phosphatase 109 U/L (35-105); Aspartate Amino Transferase 16 U/L (0-32); Blood Urea Nitrogen 9 mg/dL (6-20); C Reactive Protein 6.9 mg/L (0.0-4.9); Carbon Dioxide 25 mmol/L (22-29); Chloride 104 mmol/L (98-107); Chol HDL Ratio 5.49 mg/dL (0.0-4.40); Cholesterol 192 mg/dL (0-200); Globulin 3.5 g/dL (1.3-4.6); Glomerular Filtration Rate 107.6 mL/min (90-130); Glucose 96 mg/dL (65-115); HDL Cholesterol 35 mg/dL (60-100); LDL Cholesterol Calculated 118 mg/dL (50-129); LDL HDL Ratio 3.37 RATIO (0.00-3.22); Osmolality Calculated 287 mOsm/kg (285-295); Sodium 139 mmol/L (136-145); Total Bilirubin 0.3 mg/dL (0.15-1.2); Total Protein 7.4 g/dL (6.6-8.7); Triglycerides 197 mg/dL (0-150)
[2022-04-08 10:04] LABS: Add Urine Microscopic? YES; Bilirubin Urine Neg (Negative); Blood Urine 2+ (Negative); Glucose Urine UA Norm (Normal); Ketones Urine Negative (Negative); Leukocyte Esterase Urine Negative (Negative); Nitrate Urine Negative (Negative); Protein Urine Trace (Negative); RBC Urine 0-4 /hpf (0-2); Specific Gravity, Urine 1.025 (1.005-1.030); Urine Appearance Clear (CLEAR); Urine Color Yellow (Yellow); Urobilinogen Urine 1 mg/dL (Negative); pH Urine 5 (5-7)
[2022-04-08 10:05] LABS: Add Urine Culture? No; Bacteria Urine TRACE /hpf
== END 2022-04-08 08:58 | disposition home or self-care (01) ==
LOC: LAB 09:00
PROVIDERS: PCP Family Medicine; Visit Provider Internal Medicine
DX: L40.9 Psoriasis, unspecified (principal)
CPT/HCPCS: 80053; 80061; 81001; 85025; 85651; 86140

== ENCOUNTER 2022-08-04 10:42 | Outpatient (CLI) | payer MEDICAID, SELFPAY ==
[2022-08-04 11:19] LABS: Basophils # 0.1 10^3/uL (0.0-0.1); Basophils % 0.6 %; Eosinophils # 0.4 10^3/uL (0.0-0.8); Eosinophils % 4.6 %; Hemoglobin 15.3 g/dL (11.5-15.3); Lymphocytes # 2.5 10^3/uL (0.8-4.8); Lymphocytes % 26.8 %; Mean Corpuscular HGB Conc 32.6 g/dL (30.0-36.0); Mean Corpuscular Hemoglobin 31.7 pg (28.0-34.0); Mean Corpuscular Volume 97.3 fl (81-99); Mean Platelet Volume 9.5 fL (7.4-10.4); Monocytes # 0.4 10^3/uL (0.2-0.9); Monocytes % 4.2 %; Neutrophils # 5.95 10^3/uL (1.8-7.7); Neutrophils % 63.4 %; Nucleated Red Blood Cells % 0 %; Platelet Count 273 10^3/cmm (130-400); Red Blood Count 4.83 10^6/uL (4.1-5.3); Red Cell Distribution Width 13.6 % (12.1-15.1); White Blood Count 9.4 10^3/uL (4.0-10.0)
[2022-08-04 11:29] LABS: Erythrocyte Sedimentation Rate 29 mm/hr (0-15)
[2022-08-04 11:36] LABS: Alanine Aminotransferase 10 U/L (0-33); Albumin Level 3.6 g/dL (3.5-5.2); Alkaline Phosphatase 89 U/L (35-105); Anion Gap 12.4 (5-19); Aspartate Amino Transferase 14 U/L (0-32); Blood Urea Nitrogen 5 mg/dL (6-20); C Reactive Protein 9.3 mg/L (0.0-4.9); Calcium 8.6 mg/dL (8.5-10.5); Carbon Dioxide 25 mmol/L (22-29); Chloride 108 mmol/L (98-107); Globulin 3.1 g/dL (1.3-4.6); Glomerular Filtration Rate 132.2 mL/min (90-130); Glucose 104 mg/dL (65-115); Osmolality Calculated 290 mOsm/kg (285-295); Potassium 4.4 mmol/L (3.5-5.1); Sodium 141 mmol/L (136-145); Total Bilirubin 0.2 mg/dL (0.15-1.2); Total Protein 6.7 g/dL (6.6-8.7)
== END 2022-08-04 10:43 | disposition home or self-care (01) ==
PROVIDERS: PCP Family Medicine; Visit Provider Internal Medicine
DX: L40.50 Arthropathic psoriasis, unspecified (principal); M19.90 Unspecified osteoarthritis, unspecified site; Z79.899 Other long term (current) drug therapy
CPT/HCPCS: 36415; 80053; 85025; 85651; 86140

== ENCOUNTER → 2022-09-19 09:51 | Outpatient (BNVA) | payer MEDICAID, SELFPAY | PROVIDERS: PCP Family Medicine; Visit Provider Nurse Practitioner Women's Health | DX: Z01.419 Encounter for gynecological examination (general) (routine) without abnormal findings (principal) | CPT/HCPCS: 88175 ==

== ENCOUNTER → 2022-11-28 15:00 | Outpatient (BNVA) | payer MEDICAID, SELFPAY | PROVIDERS: PCP Family Medicine; Visit Provider Nurse Practitioner Women's Health | DX: N87.1 Moderate cervical dysplasia (principal); Z01.419 Encounter for gynecological examination (general) (routine) without abnormal findings | CPT/HCPCS: 88175 ==

== ENCOUNTER → 2023-03-31 10:25 | Outpatient (BNVA) | payer SELFPAY | PROVIDERS: PCP Family Medicine; Visit Provider Internal Medicine | DX: G62.9 Polyneuropathy, unspecified (principal) | CPT/HCPCS: 36415; 72100; 80053; 85007; 85025; 86140 ==

== ENCOUNTER 2023-07-17 08:36 | Outpatient (CLI) | payer OTHER, SELFPAY ==
--- NOTE | 2023-07-17 08:45 | MR_ITS ---
WS: [id number] MRI LUMBAR SPINE NONCONTRAST TECHNIQUE: Sagittal T1, T2 and STIR imaging. Axial T1 and T2 imaging. CLINICAL INFORMATION: M54.16 - Radiculopathy, lumbar region COMPARISON: None. FINDINGS: Mild lumbar curve. No acute compression. No high-grade central canal stenosis. L1-L2: Normal. L2-L3: Mild annular bulging. Slight narrowing the RIGHT subarticular recess. Mild facet arthropathy. Spinal canal and foramen are patent. L3-L4: Mild annular bulging. Slight impingement LEFT subarticular recess and traversing LEFT L4 nerve root. Foramen are patent. L4-L5: Mild annular bulging. Impingement of the LEFT subarticular recess traversing LEFT L5 nerve grover t. Mild RIGHT foraminal narrowing. Moderate facet arthropathy. L5-S1: Mild annular bulging with slight effacement of the ventral thecal sac. Slight impingement on t he LEFT S1 nerve root. Mild LEFT and no significant RIGHT foraminal narrowing. Moderate facet arthrop athy. Tiny RIGHT paracentral annular fissure. Incidental Tarlov cyst in the sacrum. Tiny syrinx in the thoracic cord at T6-T8 seen on the special effects designer imaging measuring approximately 2 mm in A P dimension. Recommend further evaluation with thoracic spine MRI. Visualized pelvic bony structures: Normal. Paravertebral soft tissues: Normal. IMPRESSION: 1. Tiny syrinx in the thoracic cord at T6-T8 seen on the special effects designer imaging measuring approximately 2 mm in AP dimension. Recommend further evaluation with thoracic spine MRI. 2. Mild lumbar curve. No acute compression. No high-grade central canal stenosis. 3. Small LEFT subarticular protrusion L3-4 slightly impinges the traversing LEFT L4 nerve root in th e subarticular recess. 4. Mild annular bulge L4-5 impinges the traversing LEFT L5 nerve root in the subarticular recess. Mi ld RIGHT L4-5 bony foraminal narrowing. 5. Disc bulge L5-S1 with a RIGHT paracentral annular fissure. Slight impingement on the traversing L EFT greater than RIGHT S1 nerve roots. Mild LEFT foraminal narrowing. 6. Moderate facet arthropathy L4-L5 and L5-S1.
== END 2023-07-17 08:37 | disposition home or self-care (01) ==
LOC: RAD 08:37
PROVIDERS: PCP Family Medicine; Visit Provider Anesthesiology Pain Medicine
DX: M54.16 Radiculopathy, lumbar region (principal)
CPT/HCPCS: 72148

== ENCOUNTER → 2023-07-23 10:30 | Outpatient (BNVA) | payer OTHER, MEDICAID, SELFPAY | PROVIDERS: PCP Family Medicine; Referring Provider Anesthesiology Pain Medicine; Visit Provider Orthopaedic Surgery | DX: M48.062 Spinal stenosis, lumbar region with neurogenic claudication (principal) | CPT/HCPCS: 36415; 80053; 81001; 85025 ==

== ENCOUNTER 2023-09-10 08:33 | Outpatient (RCR) | payer OTHER, SELFPAY | END 2023-09-15 23:59 | disposition home or self-care (01) | LOC: SPT 08:33 | PROVIDERS: PCP Family Medicine; Visit Provider Orthopaedic Surgery | DX: M48.062 Spinal stenosis, lumbar region with neurogenic claudication (principal) | CPT/HCPCS: 97110; 97162 ==

== ENCOUNTER 2023-09-16 06:00 | Outpatient (RCR) | payer MEDICAID, SELFPAY | END 2023-10-16 23:59 | disposition home or self-care (01) | LOC: SPT 06:00 | PROVIDERS: PCP Family Medicine; Visit Provider Orthopaedic Surgery | DX: M48.062 Spinal stenosis, lumbar region with neurogenic claudication (principal); M54.59 Other low back pain | CPT/HCPCS: 97110 ==

== ENCOUNTER 2023-10-17 06:00 | Outpatient (RCR) | payer MEDICAID, SELFPAY | END 2023-10-28 23:59 | disposition home or self-care (01) | LOC: SPT 06:00 | PROVIDERS: PCP Family Medicine; Visit Provider Orthopaedic Surgery | DX: M48.062 Spinal stenosis, lumbar region with neurogenic claudication (principal) | CPT/HCPCS: 97110; 97530 ==

== ENCOUNTER 2023-12-14 06:52 | Day surgery (SDC) | payer OTHER, SELFPAY ==
[2023-12-14] VITALS (14 sets, daily range): BP systolic 105–143; BP diastolic 63–83; PULSE 89–115; RESP 12–21; TEMP 36.2–36.7; O2SAT 90–98; BMI 36.0
[2023-12-14] MEDS: sodium chloride 0.9% 1,000 ML 30 ML IV (07:30)
[2023-12-14] MEDS: scopolamine 1.5 Patch 1 PATCH TRANSDERMA (07:30)
--- NOTE | 2023-12-14 07:36 | P.ANESASSM_ITS ---
Pre-Anesthetic Assessment Height/Weight: Height 1.57 m Weight 89.358 kg Temp Pulse Resp BP Pulse Ox O2 Del Method 97.1 F L 93 16 121/83 98 Room Air 12/14/23 07:14 12/14/23 07:14 12/14/23 07:14 12/14/23 07:14 12/14/23 07:14 12/14/23 07:16 Preop Diagnosis: Lumbar stenosis with neurogenic claudication Operation Date: 12/14/23 08:20 Proposed Procedures p Lumbar Spine Decompression Lumbar Decompression(Not Applicable) - Michael Allen, Familial anesthetic complications: None Was Beta Michael taken within 24 hours: N/A Was Clonidine taken within 24 hours: N/A Last intake: Intake Last Liquid Date 12/13/23 Last Liquid Time 20:00 Last Solid Date 12/13/23 Last Solid Time 20:00 Social Tobacco and No alcohol Exam alert, oriented x 3, clear to auscultation bilaterally and regular rate & rhythm Airway Mallampati: Class II Dentition: other (no teeth) Metabolic psoriatic arthritis Anesthetic Plan ASA status: 2 Anesthesia: General Risk of > 500 ml blood loss (7ml/kg in children): No Medications/Allergies Home Medications Medication Instructions Recorded Confirmed Last Taken Type diphenhydramine HCl 25 mg capsule 25 mg PO PRN 04/26/20 12/11/23 07/22/20 14:00 History (Benadryl) cetirizine 10 mg tablet (Zyrtec) 10 mg PO DAILY PRN Allergy Symptoms 09/06/21 12/11/23 12/11/23 History apremilast 30 mg tablet (Otezla) 30 mg PO BID #60 tabs 05/06/23 12/14/23 12/14/23 Rx buspirone 30 mg tablet 30 mg PO BID #60 tabs 10/27/23 12/14/23 12/14/23 Rx duloxetine 60 mg capsule,delayed See Rx Instructions .Route 11/04/23 12/14/23 12/14/23 Rx release .COMPLEX #180 caps ibuprofen 800 mg tablet 800 mg PO Q8H #90 tabs 11/09/23 12/11/23 12/11/23 Rx hydrocodone 10 mg-acetaminophen 1 tab PO Q4H PRN pain 1 month #180 11/30/23 12/14/23 12/13/23 Rx 325 mg tablet tabs gabapentin 400 mg capsule 400 mg PO TID neuropathic pain #90 12/02/23 12/14/23 12/14/23 Rx caps mometasone 0.1 % topical cream 1 applic topical DAILY PRN skin 12/11/23 12/11/23 12/08/23 Rx irritation #45 grams baclofen 10 mg tablet 10 mg PO TID 12/14/23 12/14/23 12/14/23 History Allergies Allergy/AdvReac Type Severity Reaction Status Date / Time morphine Allergy itching Verified 12/11/23 10:23 meloxicam AdvReac Mild n/v/d Verified 12/11/23 10:23 Current Medications Generic Name Dose Route Start Last Admin Trade Name Eliot PRN Reason Stop Dose Admin Sodium Chloride 1,000 mls @ 30 mls/hr 12/14/23 07:15 12/14/23 07:30 Sodium Chloride 0.9% IV 12/15/23 07:14 30 mls/hr .Q24H DEVANTE Administration PFSH Anesthesia Medical History Murmur, heart asymptomatic-- dx at 28 y/o No pertinent past medical history neghx: htn,dm,thyroid,dvt/pe PCP: Dr. Marcy Blood of thoracic spine Fibromyalgia Psoriatic arthritis Dr. Hurd Psoriasis Cervical intraepithelial neoplasia II Surgical History S/P conization of cervix (11/30/18) Cold knife conization. Per[place]. [place] [facility] [place], [place]. Final path: AYSE 2. ECC negative. S/P cholecystectomy (~2000) Laparoscopic converted to open. Performed at [facility] in [place], [place]. Family History Mother Diabetes Hypertension Heart disease Thyroid disease Denies family history of Colon cancer Ovarian cancer Hypercholesteremia Breast cancer Uterine cancer Stroke Social History Smoking and tobacco/nicotine status: never used tobacco/nicotine Substance/Drug Use: never Data Anesthesia Cardiac Studies: No Data to Display
--- NOTE | 2023-12-14 07:51 | W.PM.OPSUD ---
Surgery/Procedure H&P Update DATE OF PROCEDURE: December 14, 2023 DATE H&P PERFORMED: 11/26/23 H&P UPDATE INFORMATION: I have reviewed H&P completed within last 30 days, I have examined patient prior to procedure and No changes to prior documentation PREOP DIAGNOSIS: Lumbar stenosis with neurogenic claudication PLANNED PROCEDURE: Operation Date: 12/14/23 08:20 Proposed Procedures p Lumbar Spine Decompression Lumbar Decompression(Not Applicable) - Michael Allen DO
[2023-12-14] MEDS: ceFAZolin 2,000 MG in sodium chloride 0.9% (plus) 50 ML 100 MG IV (08:00)
[2023-12-14] MEDS: lidocaine-epi 1% 20 mL INJ 10 ML INJECTION (08:40)
--- NOTE | 2023-12-14 09:29 | P.OP_ITS ---
Operative Report Date of procedure: December 14, 2023 Pre-op diagnosis: Lumbar stenosis with neurogenic claudication Post-op diagnosis: same Procedure done: 1. L3-4 laminectomy with partial facetectomy 2. L4-5 laminectomy and partial facetectomy Surgeon: Michael Allen DO Estimated blood loss (mL): 10 Procedure: 1. L3-4 laminectomy with partial facetectomy 2. L4-5 laminectomy and partial facetectomy Patient is brought to the operative suite. After undergoing anesthesia they are placed in the prone position. All areas of impingement are well padded. Patient is then prepped and draped in the normal sterile fashion. A skin incision is made over the L3/4 level. This is confirmed under c-arm guidance. A series of dilators are passed and the tubular retractor is docked on the L3 lamina. A bovie is used to clear the soft tissue off the lamina and the L 3/4 facet joint. A high speed jen is then used to perform the laminectomy and take down the medial aspect of the L 3/4 facet joint. A kerrison rongeure was then used to take down the remaining lamina and smooth the edge of the laminectomy up to the point where the ligamentum flavum attaches. Attention was then brought to the medial aspect of the facet joint. The remaining medial aspect of the superior and inferior aspect of the facet joint were taken down with the kerrison from the pedicle of L3 to L 4. The facet joint had significant hypertrophy. Attention was then brought to the Ligamentum Flavum. The ligament was taken down from the lamina of L3 to L4 and out medially to the remaining facet joint. The ligament was thick. The dura was then exposed. The dura was in good repair. The L3 nerve was then traced with a curette out the L3/4 foramen and found to be adequately decompressed. The L4 nerve was traced with a curette around the L4 pedicle. The lateral recess was opened with a kerrison helping to further decompress the L4 nerve. Wound is then irrigated copiously with saline and surgiflo is used to stop any bleeding. The tubular retractor is removed and the A skin incision is made over the L4/5 level. This is confirmed under c-arm guidance. A series of dilators are passed and the tubular retractor is docked on the L4 lamina. A bovie is used to clear the soft tissue off the lamina and the L 4/5 facet joint. A high speed jen is then used to perform the laminectomy and take down the medial aspect of the L 4/5 facet joint. A kerrison rongeure was then used to take down the remaining lamina and smooth the edge of the laminectomy up to the point where the ligamentum flavum attaches. Attention was then brought to the medial aspect of the facet joint. The remaining medial aspect of the superior and inferior aspect of the facet joint were taken down with the kerrison from the pedicle of L4 to L 5. The facet joint had significant hypertrophy. Attention was then brought to the Ligamentum Flavum. The ligament was taken down from the lamina of L4 to L5 and out medially to the remaining facet joint. The ligament was thick. The dura was then exposed. The dura was in good r epair. The L4 nerve was then traced with a curette out the L4/5 foramen and found to be adequately decompressed. The L5 nerve was traced with a curette around the L5 pedicle. The lateral recess was opened with a kerrison helping to further decompress the L5 nerve. Wound is then irrigated copiously with saline and surgiflo is used to stop any bleeding. The tubular retractor is removed and the wound is closed with vicryl and monocryl suture. Glue is then used to protect the wound. A sterile dressing is then placed. Patient was then placed in the supine position and transferred to the PACU in stable condition.
[2023-12-14] MEDS: fentaNYL 50 mcg/mL INJ 2mL IVP (10:05)
--- NOTE | 2023-12-14 11:04 | XR_ITS ---
WS: [id number] INTRAOPERATIVE TECHNIQUE: 2 Spot fluoroscopic images for intraoperative purposes. FLUOROSCOPY TIME: 3 seconds CLINICAL INFORMATION: or pic, decompression. COMPARISON: None. FINDINGS: Localization marker overlying the L3-4 and L4-5 interspace dorsally XR/XR lumbar spine 1V [id number] IMPRESSION: Images obtained for intraoperative purposes.
--- NOTE | 2023-12-14 11:35 | ANE.PACU2 ---
Inpatient post-anesthesia follow up: Airway intact: Yes Vital signs: Temperature 97.7 F Pulse Rate 89 Respiratory Rate 18 Blood Pressure 113/74 Pulse Oximetry 94 Oxygen Delivery Me thod Room Air Oxygen Flow Rate 3 Fraction of Inspir ed Oxygen Hydration adequate: Yes Nausea and vomiting: No Pain level: 1 Mental status: Baseline
--- NOTE | 2023-12-14 11:41 | SUR.PHASEII ---
11:30 ROM, SENSATION AND PULSES IN ALL EXTREMITIES.
== END 2023-12-14 11:35 | disposition home or self-care (01) ==
PROVIDERS: PCP Family Medicine; Visit Provider Orthopaedic Surgery
PROC: (CPT 63005; principal; 2023-12-14 08:10)
DX: M48.062 Spinal stenosis, lumbar region with neurogenic claudication (principal)
CPT/HCPCS: 63047; 63048; 72020; 76000; J0690; J1100; J1170; J2250; J2371; J2405; J2704; J3010; J3490; J7030

== ENCOUNTER → 2024-04-07 16:16 | Outpatient (BNVA) | payer OTHER, SELFPAY | PROVIDERS: PCP Family Medicine; Referring Provider Obstetrics & Gynecology; Visit Provider Nurse Practitioner Women's Health | DX: N91.1 Secondary amenorrhea (principal) | CPT/HCPCS: 82670; 83001 ==

== ENCOUNTER 2024-04-27 09:18 | Outpatient (CLI) | payer OTHER, SELFPAY ==
--- NOTE | 2024-04-27 09:24 | MR_ITS ---
WS: [id number] MRI LUMBAR SPINE NONCONTRAST TECHNIQUE: Sagittal T1, T2 and STIR imaging. Axial T1 and T2 imaging. CLINICAL INFORMATION: back pain COMPARISON: MRI 07/17/2023 FINDINGS: Interval postoperative changes LEFT hemilaminectomy L3-L4 and L4-L5 with spinal canal decompression. L1-L2: Normal. L2-L3: Mild annular bulging. Slight narrowing of the RIGHT subarticular recess. Mild facet arthropath y. Spinal canal is patent. L3-L4: Small LEFT subarticular protrusion slightly impinges the traversing LEFT L4 nerve root in the subarticular recess. Spinal canal is patent. Mild facet arthropathy. LEFT laminectomy defects. Mild L EFT foraminal narrowing. L4-L5: Mild annular bulging. Laminectomy defects. Spinal canal has been decompressed. Slight narrowin g the LEFT subarticular recess. Mild foraminal narrowing similar to previous. Moderate facet arthropa thy. L5-S1: Mild annular bulging. Slight effacement of the ventral thecal sac. Slight contact of the trave rsing S1 nerve roots LEFT greater than RIGHT. Recommend correlation LEFT S1 nerve root symptoms. This appears progressed compared to previous. Mild LEFT foraminal narrowing. Mild facet arthropathy. Visualized pelvic bony structures: Normal. Paravertebral soft tissues: Normal. MR/MR lumbar spine wo con* [id number] IMPRESSION: 1. Disc osteophyte complex L5-S1 slightly impinges the LEFT S1 nerve root. Thi s appears slightly progressed compared to previous. Mild LEFT L5-S1 foraminal n arrowing. 2. Interval postoperative changes hemilaminectomies LEFT L3-L4 and L4-L5 with spinal canal decompression. 3. Narrowing of the LEFT L3-4 subarticular recess appears slightly progressed today with impingement traversing LEFT L4 nerve root. 4. Stable mild residual narrowing of the LEFT L4-5 subarticular recess. 5. Stable mild LEFT L3-4 and bilateral L4-5 foraminal narrowing 6. Possible small syrinx in the thoracic cord better visualized on the prior M RI preload supervisor imaging as previously described. Recommend follow-up thoracic spine MR I. 7. No other significant interval changes.
== END 2024-04-27 09:19 | disposition home or self-care (01) ==
LOC: RAD 09:19
PROVIDERS: PCP Family Medicine; Visit Provider Orthopaedic Surgery
DX: M51.26 Other intervertebral disc displacement, lumbar region (principal); M47.896 Other spondylosis, lumbar region; Z98.890 Other specified postprocedural states
CPT/HCPCS: 72148

== ENCOUNTER 2024-05-24 11:33 | Outpatient (CLI) | payer OTHER, SELFPAY ==
[2024-05-24 13:05] LABS: Hematocrit 43.3 % (36-47); Mean Corpuscular HGB Conc 33.5 g/dL (30-55); Mean Corpuscular Hemoglobin 32.2 pg (27-33); Mean Corpuscular Volume 96.2 fl (85-98); Mean Platelet Volume 9.5 fL (7.4-10.4); Platelet Count 286 10^3/cmm (157-399); Red Cell Distribution Width 13.9 % (12.1-15.1); White Blood Count 12.66 10^3/uL (3.29-11.43)
[2024-05-24 13:10] LABS: Erythrocyte Sedimentation Rate 24 mm/hr (0-15)
[2024-05-24 13:37] LABS: Alanine Aminotransferase 15 U/L (0-33); Albumin Level 3.9 g/dL (3.5-5.2); Alkaline Phosphatase 105 U/L (35-105); Aspartate Amino Transferase 11 U/L (0-32); C Reactive Protein 4.8 mg/L (0.0-4.9); Globulin 2.8 g/dL (1.3-4.6); Glomerular Filtration Rate 169.7 mL/min (90-130); Total Bilirubin 0.2 mg/dL (0.15-1.2); Total Protein 6.7 g/dL (6.6-8.7)
[2024-05-24 13:41] LABS: Absolute Segmented Neutrophil 4.6 10/cmm (1.6-7.1); Band Neutrophils Absolute 0.4 10^3/cmm (0.0-1.2); Basophils Absolute 0.1 10^3/cmm (0.0-0.2); Eosinophils 0 %; Lymphocytes 33 %; Lymphocytes Absolute 6.5 10^3/cmm (1.2-3.4); Monocytes Absolute 1.1 10^3/cmm (0.1-0.6); Segmented Neutrophils 36 %; Slide Review Slide Review Perform; Total Cells Counted 100 (0-100)
[2024-05-24 13:42] LABS: Absolute Neutrophil 4.9 10^3/cmm (1.4-6.5); Platelet Estimate Normal (Normal)
[2024-05-24 13:55] LABS: Hepatitis B Core AB, Total Non-Reactive (Nonreactive); Hepatitis B Surface Antigen Non-Reactive (Nonreactive); Hepatitis C Virus Antibody Non-Reactive (Nonreactive)
== END 2024-05-24 11:34 | disposition home or self-care (01) ==
PROVIDERS: PCP Family Medicine; Visit Provider Internal Medicine Rheumatology
DX: L40.50 Arthropathic psoriasis, unspecified (principal); M79.7 Fibromyalgia; Z79.899 Other long term (current) drug therapy
CPT/HCPCS: 36415; 80076; 82565; 85007; 85025; 85651; 86140; 86480; 86704; 86803; 87340

== ENCOUNTER → 2024-06-09 10:58 | Outpatient (BNVA) | payer OTHER, SELFPAY | PROVIDERS: PCP Family Medicine; Visit Provider Orthopaedic Surgery | DX: M48.062 Spinal stenosis, lumbar region with neurogenic claudication (principal) | CPT/HCPCS: 80053; 81001; 85007 ==

== ENCOUNTER 2024-06-15 13:56 | Emergency (ER) | payer OTHER, SELFPAY ==
[2024-06-15 14:17] VITALS: BP 133/84
--- NOTE | 2024-06-15 14:46 | ED_ITS ---
HPI - General Adult General: Chief complaint: General Medical Stated complaint: body pain Time Seen by Provider: 06/15/24 14:34 Source: patient Mode of arrival: ambulatory Limitations: no limitations History of Present Illness: Patient is a 49-year-old female with past medical history of psoriatic arthritis and fibromyalgia presented to the emergency department complaining of diffuse bodyaches onset today. Reports history of flareups with her psoriatic arthritis, states this feels similar just worse. She tried to get a hold primary care but they are reportedly out of the office. States that she takes pain medications, but is not currently on any steroids. States in the past she has taken steroids and this has helped. Denying any chest pain, shortness breath, fever, or other new symptoms. No known exacerbating factor to why she started having pain. MD complaint: Body aches, history of psoriatic arthritis, states flareup Onset (ago): hour(s) Severity: severe Quality: burning and constant Pain Consistency: constant Relieving factors: none Exacerbating factors: none Associated symptoms: Deny chest pain, dyspnea, headache(s), nausea, rash, palpitations or vomiting Treatments prior to arrival: other (Prescribed pain medication) Related Data Home Medications Medication Instructions Recorded Confirmed diphenhydramine HCl 25 mg capsule 25 mg PO DAILY PRN allergies 04/26/20 06/15/24 (Benadryl) cetirizine 10 mg tablet (Zyrtec) 10 mg PO DAILY Allergy Symptoms 09/06/21 06/15/24 baclofen 10 mg tablet 10 mg PO TID PRN muscle 12/14/23 06/15/24 spasms/back pain buspirone 30 mg tablet 30 mg PO BID 06/15/24 06/15/24 duloxetine 60 mg capsule,delayed 60 mg PO BID 06/15/24 06/15/24 release ibuprofen 800 mg tablet 800 mg PO Q8H PRN Pain 06/15/24 06/15/24 Previous Rx's Medication Instructions Recorded gabapentin 400 mg capsule 400 mg PO TID neuropathic pain #90 05/01/24 caps apremilast 30 mg tablet (Otezla) 30 mg PO BID #60 tabs 05/05/24 hydrocodone 10 mg-acetaminophen 1 tab PO Q4H PRN pain 1 month #180 05/30/24 325 mg tablet tabs mometasone 0.1 % topical cream 1 applic topical DAILY PRN skin 05/30/24 irritation #45 grams cyclobenzaprine 5 mg tablet 5 mg PO Q8H #10 tabs 06/15/24 prednisone 20 mg tablet 60 mg (3 x 20 mg) PO ONCE 5 days 06/15/24 #15 tabs Allergies Allergy/AdvReac Type Severity Reaction Status Date / Time morphine Allergy itching Verified 06/15/24 14:20 meloxicam AdvReac Mild n/v/d Verified 06/15/24 14:20 Review of Systems General: Reports: 10 or more systems reviewed and unremarkable except in HPI and below Const: Reports: body aches; Denies: fever(s), chills or fatigue Eyes: Denies: change in vision ENMT: Denies: throat pain, ear or mastoid pain or nasal discharge Card: Denies: chest pain, palpitations, swelling of feet/ankles or lightheadedness Resp: Denies: dyspnea, productive cough or wheezing GI: Denies: abdominal pain, nausea, vomiting, diarrhea or constipation : Denies: flank pain, difficulty voiding, dysuria or urinary frequency Musc: Reports: back pain, extremity pain and joint pain Skin/Breast: Denies: rash Neuro: Denies: headache(s), numbness in extremities or weakness in extremities PFSH ED PFSH: Medical History Murmur, heart asymptomatic-- dx at 28 y/o No pertinent past medical history neghx: htn,dm,thyroid,dvt/pe PCP: Dr. Marcy Blood of thoracic spine Fibromyalgia Psoriatic arthritis Dr. Hurd Psoriasis Cervical intraepithelial neoplasia II Surgical History Status post lumbar laminectomy (~11/2023) Dr. Colon S/P conization of cervix (11/30/18) Cold knife conization. [place] [facility] [place] Final path: AYSE 2. ECC negative. S/P cholecystectomy (~2000) Laparoscopic converted to open. Performed at [facility] in [place], [place]. Family History Mother Diabetes Hypertension Heart disease Thyroid disease Denies family history of Colon cancer Ovarian cancer Hypercholesteremia Breast cancer Uterine cancer Stroke Social History Smoking and tobacco/nicotine status: current every day tobacco/nicotine user Substance/Drug Use: never Physical Exam Const: COMMON NORMALS: patient oriented x3 and no limitations GENERAL APPEARANCE: cooperative and well developed ORIENTATION/CONSCIOUSNESS: Yes awake, Yes oriented to person, Yes oriented to place and Yes oriented to time OTHER: Appears anxious HENMT: COMMON NORMALS: normocephalic, atraumatic and hearing grossly normal bilaterally HEAD & SCALP: normocephalic and atraumatic Eye: COMMON NORMALS: Equal, round and reactive pupils present, EOMs intact bilaterally and conjunctivae normal CONJUNCTIVA: Yes conjunctivae normal PUPIL: Yes Equal, round and reactive pupils present Neck/C-Spine: COMMON NORMALS: full ROM, supple and no JVD Resp: COMMON NORMALS: normal respiratory effort, No retractions, No use of accessory muscles and clear to auscultation bilaterally AUSCULTATION: clear to auscultation bilaterally Cardio: COMMON NORMALS: no JVD, regular rhythm, No clicks present (Cardio), No murmurs present (Cardio) and No rub (Cardio) RATE: tachycardic RHYTHM: regular rhythm GI: COMMON NORMALS: Normal to inspection, nondistended, normoactive bowel sounds present, Soft to palpation and non-tender AUSCULTATION: Yes normoactive bowel sounds PALPATION: Yes Soft to palpation RECTAL EXAM: deferred Back/Pelvis: OTHER: Scoliosis Extremity: COMMON NORMALS: full ROM, capillary refill normal, no joint enlargement, no clubbing, cyanosis or edema and no pedal edema Neuro: COMMON NORMALS: patient oriented x3, moves all extremities, no focal motor deficits and no sensory deficits noted SENSORIUM/ORIENTATION: Yes oriented to person, Yes oriented to place and Yes oriented to time Skin: NARRATIVE SKIN EXAM: Psoriatic lesions scattered to bilateral lower extremities Course Vital Signs: Vital signs: Vital Signs Pulse Rate 92 06/15/24 15:00 Blood Pressure 119/76 06/15/24 15:00 Pulse Oximetry 96 06/15/24 15:00 Oxygen Delivery Me thod Room Air 06/15/24 15:00 [facility] - General Adult Medical Decision Making Patient presents reporting history of psoriatic arthritis and fibromyalgia. Takes Smoot for pain relief, has not taken steroids recently. Pain was reported to be all over, however she did not have any chest pain, fever, shortness of breath, or other concerns. She directly related this to prior psoriatic flares, just taking this felt worse. Treated with Smoot, Decadron, and muscle x-ray in the ED and after observation for 30 to 45 minutes states that she does feel better. I do not suspect any etiology other than her autoimmune conditions, thus we will start her on prednisone and have her closely follow-up with primary care. She is comfortable with discharge at this time, I offered further lab work if this would make her feel better but she denied this stating she would treat at home. However strict return precautions were given, of which she endorsed understanding. No radiology studies performed this visit Discharge Plan Discharge Patient Disposition: Home Clinical Impression: Psoriatic arthritis, Fibromyalgia Condition: Stable Prescriptions: New prednisone 20 mg tablet 60 mg PO ONCE 5 Days Qty: 15 0RF cyclobenzaprine 5 mg tablet 5 mg PO Q8H Qty: 10 0RF No Action diphenhydramine HCl [Benadryl] 25 mg capsule 25 mg PO DAILY PRN (Reason: allergies) cetirizine [Zyrtec] 10 mg tablet 10 mg PO DAILY gabapentin 400 mg capsule 400 mg PO TID Qty: 90 5RF Otezla 30 mg tablet 30 mg PO BID Qty: 60 1RF mometasone 0.1 % cream 1 applic topical DAILY PRN (Reason: skin irritation) Qty: 45 0RF hydrocodone-acetaminophen 10-325 mg tablet 1 tab PO Q4H PRN (Reason: pain) 30 Days Qty: 180 0RF Rx Instructions: max of 6 tabs per day baclofen 10 mg tablet 10 mg PO TID PRN (Reason: muscle spasms/back pain) buspirone 30 mg tablet 30 mg PO BID ibuprofen 800 mg tablet 800 mg PO Q8H PRN (Reason: Pain) duloxetine 60 mg capsule,delayed release(DR/EC) 60 mg PO BID Discharge Orders: Discharge ED (Routine); Ordered 06/15/24 Ordered By: Dario Patricia Referrals: Juan Vidal DO [Primary Care Provider] - Patient Instructions: Opioid Safety, Pain Management Activity Restrictions/Additional Instructions: Continue taking home medications. Muscle relaxers, prednisone. Follow-up with primary care for further evaluation. Return with any chest pain, severe abdominal pain, fever, or other concerns that you have. Coding Level of Care Code ED Screening Unit Registered Nurse for Jasmina Murillo
[2024-06-15] MEDS: HYDROcodone-acetaminophen 7.5-325 mg Tablet 1 TAB PO (14:56)
[2024-06-15] MEDS: dexamethasone 10 mg/mL INJ IM (14:57)
[2024-06-15] MEDS: orphenadrine 30 mg/mL Inj 2 mL 60 MG IM (14:58)
[2024-06-15 15:00] VITALS: BP 119/76; PULSE 92; O2SAT 96
[2024-06-15 15:55] VITALS: BP 92/76; PULSE 98; O2SAT 99
== END 2024-06-15 15:56 | disposition home or self-care (01) ==
PROVIDERS: Emergency Provider Physician Assistant; PCP Family Medicine
DX: L40.50 Arthropathic psoriasis, unspecified (principal); M79.7 Fibromyalgia; Z72.0 Tobacco use
CPT/HCPCS: 96372; 99284; J1100; J2360

== ENCOUNTER 2024-10-24 12:06 | Outpatient (CLI) | payer OTHER, SELFPAY ==
[2024-10-24 12:51] LABS: Basophils # 0.1 10^3/uL (0.0-0.1); Basophils % 0.5 %; Eosinophils # 0.2 10^3/uL (0.0-0.8); Eosinophils % 1.6 %; Hematocrit 45.9 % (36-47); Lymphocytes # 5.1 10^3/uL (0.8-4.8); Lymphocytes % 34.6 %; Mean Corpuscular Hemoglobin 33.4 pg (27-33); Mean Corpuscular Volume 98.3 fl (85-98); Mean Platelet Volume 9.3 fL (7.4-10.4); Monocytes # 0.5 10^3/uL (0.2-0.9); Monocytes % 3.6 %; Neutrophils # 8.72 10^3/uL (1.8-7.7); Nucleated Red Blood Cells % 0 %; Platelet Count 341 10^3/cmm (157-399); Red Blood Count 4.67 10^6/uL (3.85-5.65); Red Cell Distribution Width 15.3 % (12.1-15.1); White Blood Count 14.81 10^3/uL (3.29-11.43)
[2024-10-24 12:52] LABS: Erythrocyte Sedimentation Rate 26 mm/hr (0-15)
[2024-10-24 13:09] LABS: Alanine Aminotransferase 27 U/L (0-33); Alkaline Phosphatase 103 U/L (35-105); Aspartate Amino Transferase 19 U/L (0-32); Bilirubin Direct 0.14 mg/dL (0.00-0.30); C Reactive Protein 5.6 mg/L (0.0-4.9); Globulin 2.6 g/dL (1.3-4.6); Glomerular Filtration Rate 106.3 mL/min (90-130); Total Bilirubin 0.4 mg/dL (0.15-1.2); Total Protein 6.6 g/dL (6.6-8.7)
[2024-10-24 13:18] LABS: Slide Review Slide Review Perform
== END 2024-10-24 12:07 | disposition home or self-care (01) ==
PROVIDERS: PCP Family Medicine; Visit Provider Internal Medicine Rheumatology
DX: Z79.899 Other long term (current) drug therapy (principal)
CPT/HCPCS: 36415; 80076; 82565; 85025; 85651; 86140

== ENCOUNTER → 2024-11-30 12:31 | Outpatient (BNVA) | payer OTHER, SELFPAY | PROVIDERS: PCP Family Medicine; Visit Provider Internal Medicine Rheumatology | DX: Z79.899 Other long term (current) drug therapy (principal) | CPT/HCPCS: 36415; 80076; 82306; 82565; 85025; 85651; 86140 ==

== ENCOUNTER 2025-01-31 10:16 | Outpatient (CLI) | payer OTHER, SELFPAY ==
[2025-01-31 12:49] LABS: Hematocrit 44.8 % (36-47); Hemoglobin 14.70 g/dL (11.27-16.99); Mean Corpuscular HGB Conc 32.8 g/dL (30-55); Mean Corpuscular Hemoglobin 33.4 pg (27-33); Mean Corpuscular Volume 101.8 fl (85-98); Nucleated Red Blood Cells % 0 %; Platelet Count 254 10^3/cmm (157-399); Red Blood Count 4.40 10^6/uL (3.85-5.65); White Blood Count 11.18 10^3/uL (3.29-11.43)
[2025-01-31 13:10] LABS: Alanine Aminotransferase 9 U/L (0-33); Albumin Level 4.1 g/dL (3.5-5.2); Alkaline Phosphatase 101 U/L (35-105); Aspartate Amino Transferase 11 U/L (0-32); Globulin 2.9 g/dL (1.3-4.6); Total Protein 7.0 g/dL (6.6-8.7)
[2025-01-31 13:25] LABS: Slide Review Slide Review Perform
== END 2025-01-31 10:17 | disposition home or self-care (01) ==
PROVIDERS: PCP Family Medicine; Visit Provider Internal Medicine Rheumatology
DX: Z79.899 Other long term (current) drug therapy (principal)
CPT/HCPCS: 36415; 80076; 82565; 85025; 85651; 86140